=== PATIENT | female | born 1995 | race Caucasian/White ===

== ENCOUNTER 2022-01-19 12:44 | Emergency (ER) | payer OTHER ==
[~2022-01-19] VITALS: Ht 167.6 cm; Wt 54.4 kg
== END 2022-01-19 16:23 | disposition home or self-care (01) ==
LOC: ER 12:44
DX: B34.9 Viral infection, unspecified (principal); Z20.822 Contact with and (suspected) exposure to COVID-19

== ENCOUNTER → 2024-10-23 | Emergency (ER) | payer OTHER ==
[~2024-10-23] VITALS: Ht 165.1 cm; Wt 55.8 kg
[~2024-10-23] MED LIST: CEFAZOLIN SODIUM 1,000 MG VIAL IM ONE
== END | disposition home or self-care (01) ==
LOC: ER 11:00
DX: S61.211A Laceration without foreign body of left index finger without damage to nail, initial encounter (principal); W45.8XXA Other foreign body or object entering through skin, initial encounter; Y93.89 Activity, other specified; Y92.89 Other specified places as the place of occurrence of the external cause; Y99.9 Unspecified external cause status